=== PATIENT | male | born 1935 | race Caucasian/White ===

== ENCOUNTER 2017-09-21 15:37 | Emergency (ER) | payer MEDICARE, MEDICAID, OTHER ==
[~2017-09-21] VITALS: Ht 1703 cm; Wt 79.5 kg
[~2017-09-21 15:37] MED LIST: ATOR10TA70 PO; CLOP75TA35 PO; DIPH-423 PO; GLIP5TAB13 PO; METF10004 PO; METO25TA6 PO; NITR0.4T48 SL
[2017-09-21 16:26] LABS: ALANINE AMINOTRANSFERASE 7 U/L (12-78); ALBUMIN 2.6 G/DL (3.4-5.0); ALBUMIN/GLOBULIN RATIO 0.6 (1.1-1.5); ALKALINE PHOSPHATASE 83 IU/L (46-116); ANION GAP 13 (8-16); ASPARTATE AMINO TRANSFERASE 27 U/L (10-37); BILIRUBIN,TOTAL 0.4 MG/DL (0.1-1.0); BLOOD UREA NITROGEN 19 MG/DL (7-18); BUN/CREATININE RATIO 12.8 (5.4-32.0); CALCIUM 8.6 MG/DL (8.5-10.1); CHLORIDE 99 MMOL/L (99-107); CREATININE 1.49 MG/DL (0.60-1.10); GLUCOSE 288 MG/DL (70-104); POTASSIUM 4.3 MMOL/L (3.5-5.1); SODIUM 135 MMOL/L (135-145); TOTAL CARBON DIOXIDE 22.9 MMOL/L (24-32); TOTAL PROTEIN 6.9 G/DL (6.4-8.2); eGFR 45 ML/MIN
[2017-09-21 16:34] LABS: ETHANOL < 0.010 GM/DL (0.0-0.010)
[2017-09-21] MEDS ORDERED: HYDR25TA4 PO (16:50)
[2017-09-21 16:56] LABS: BASOPHILS # (AUTO) 0.1 X10'3 (0-0.2); BASOPHILS % (AUTO) 0.8 % (0-1); EOSINOPHILS # (AUTO) 0.5 X10'3 (0-0.9); EOSINOPHILS % (AUTO) 4.1 % (0-6); HEMATOCRIT 28.9 % (42.0-52.0); HEMOGLOBIN 9.2 g/dl (14.0-17.9); LYMPHOCYTES # (AUTO) 0.9 X10'3 (1.1-4.8); LYMPHOCYTES % (AUTO) 7.4 % (21-51); MEAN CORPUSCULAR HEMOGLOBIN 24.6 PG (27.0-31.0); MEAN CORPUSCULAR VOLUME 76.9 FL (78-98); MEAN PLATELET VOLUME 6.4 FL (7.4-10.4); MONOCYTES # (AUTO) 0.5 X10'3 (0-0.9); MONOCYTES % (AUTO) 4.4 % (2-12); NEUTROPHILS # (AUTO) 9.9 X10'3 (1.8-7.7); NEUTROPHILS % (AUTO) 83.3 % (42-75); PLATELET COUNT 669 X10'3 (140-440); RED BLOOD COUNT 3.75 X10'6 (4.70-6.10); RED CELL DISTRIBUTION WIDTH 15.5 % (11.5-14.5); WHITE BLOOD COUNT 11.8 X10'3 (4.5-11.0)
[2017-09-21 17:41] LABS: CLARITY,URINE SLIGHTLY CLOUDY (Clear); COLOR,URINE YELLOW (Yellow); GLUCOSE, URINE 500 mg/dl (Neg); KETONES,URINE 15 mg/dl (Neg); LEUKOCYTE ESTERASE ,URINE NEGATIVE (Neg); NITRITES, URINE NEGATIVE (Neg); OCCULT BLOOD,URINE NEGATIVE (Neg); PROTEIN,URINE 30 mg/dl (Neg)
[2017-09-21 17:42] LABS: UA COLLECTION TYPE CLN CATCH MIDSTREAM
[2017-09-21 17:44] LABS: PLATELET ESTIMATE INCREASED
[2017-09-21 17:45] LABS: BURR CELLS FEW; ELLIPTOCYTES 1+; POIKILOCYTOSIS 1+; SCHISTOCYTES FEW
[2017-09-21 17:46] LABS: MUCUS STRANDS FEW /LPF (Neg); SQUAMOUS EPITHELIAL CELL,UR FEW /LPF (FEW)
[2017-09-21 17:47] LABS: BACTERIA,URINE FEW /HPF (Neg); RBC,URINE 0-2 /HPF (0-2); WBC,URINE 0-4 /HPF (0-4)
[2017-09-21 17:54] LABS: URINE AMPHETAMINE SCREEN NEGATIVE (Neg); URINE BARBITUATE SCREEN NEGATIVE (Neg); URINE BENZODIAZEPINES SCREEN NEGATIVE (Neg); URINE CANNABINOID SCREEN NEGATIVE (Neg); URINE COCAINE SCREEN NEGATIVE (Neg); URINE METHADONE SCREEN NEGATIVE (Neg); URINE OPIATE SCREEN NEGATIVE (Neg); URINE PHENCYCLIDINE SCREEN NEGATIVE (Neg)
[2017-09-21] MEDS ORDERED: nitroGLYCERIN 0.4mg SUBLingual tab SL PRN (19:00)
[2017-09-21] MEDS: metFORMIN 500mg tablet PO SCH (20:00)
[2017-09-21] MEDS: metoprolol tartrate 12.5mg (1/2 tablet) PO SCH (20:00)
[2017-09-21] MEDS: glipizide 5mg tablet PO SCH (20:00)
[2017-09-21] MEDS ORDERED: diphenhydrAMINE 25mg capsule PO ONE (22:10)
[2017-09-22] MEDS: metFORMIN 500mg tablet PO SCH ×2 (08:00→21:42)
[2017-09-22] MEDS: metoprolol tartrate 12.5mg (1/2 tablet) PO SCH ×2 (08:00→21:42)
[2017-09-22] MEDS: HYDROchlorothiazide 25mg tablet PO SCH (08:00)
[2017-09-22] MEDS: glipizide 5mg tablet PO SCH ×2 (08:00→21:43)
[2017-09-23] MEDS ORDERED: LORazepam 1 MG tablet PO ONE (00:40)
[2017-09-23] MEDS: metFORMIN 500mg tablet PO SCH ×2 (08:18→20:54)
[2017-09-23] MEDS: HYDROchlorothiazide 25mg tablet PO SCH (08:18)
[2017-09-23] MEDS: metoprolol tartrate 12.5mg (1/2 tablet) PO SCH ×2 (08:19→20:54)
[2017-09-23] MEDS: glipizide 5mg tablet PO SCH ×2 (08:19→20:54)
[2017-09-23] MEDS: LORazepam 0.5 MG tablet PO PRN (20:55)
[2017-09-23] MEDS: Melatonin 3mg tablet PO SCH (21:00)
[2017-09-24] MEDS: HYDROchlorothiazide 25mg tablet PO SCH (08:31)
[2017-09-24] MEDS: metFORMIN 500mg tablet PO SCH ×2 (08:31→21:05)
[2017-09-24] MEDS: glipizide 5mg tablet PO SCH ×2 (08:31→21:05)
[2017-09-24] MEDS: metoprolol tartrate 12.5mg (1/2 tablet) PO SCH ×2 (08:31→21:05)
[2017-09-24] MEDS: Melatonin 3mg tablet PO SCH (21:00)
[2017-09-24] MEDS: LORazepam 0.5 MG tablet PO PRN (21:05)
[2017-09-25] MEDS: LORazepam 0.5 MG tablet PO PRN (04:02)
[2017-09-25 05:35] VITALS: BP 120/60
[2017-09-25] MEDS: metFORMIN 500mg tablet PO SCH (08:03)
[2017-09-25] MEDS: HYDROchlorothiazide 25mg tablet PO SCH (08:03)
[2017-09-25] MEDS: metoprolol tartrate 12.5mg (1/2 tablet) PO SCH (08:03)
[2017-09-25] MEDS: glipizide 5mg tablet PO SCH (08:03)
[2017-09-25] MEDS ORDERED: MELA3TAB PO (12:15)
== END 2017-09-25 12:10 ==
LOC: ER 15:37
DX: F32.2 Major depressive disorder, single episode, severe without psychotic features (principal); R45.851 Suicidal ideations; E11.9 Type 2 diabetes mellitus without complications; I10 Essential (primary) hypertension; Z79.84 Long term (current) use of oral hypoglycemic drugs
CPT/HCPCS: 36415; 71045; 80053; 80305; 80320; 81001; 84443; 85025; 93005; 99285; Q0163

== ENCOUNTER 2017-09-25 10:26 | Inpatient (IN) | payer MEDICARE, MEDICAID, OTHER ==
[~2017-09-25] VITALS: Ht 172.7 cm; Wt 72.1 kg
[~2017-09-25 10:26] MED LIST changes: -ATOR10TA70 PO; -CLOP75TA35 PO; -DIPH-423 PO; +HYDR25TA4 PO
[2017-09-25] MEDS ORDERED: acetaminophen 325mg tablet PO PRN ×2 (11:45)
[2017-09-25] MEDS ORDERED: mag hydrox/Alum hydrox/simeth 30ml oral suspension PO PRN (11:45)
[2017-09-25] MEDS ORDERED: magnesium hydroxide 30ml (MOM) UD suspension PO PRN (11:45)
[2017-09-25] MEDS ORDERED: MELA3TAB PO (12:15)
[2017-09-25] MEDS ORDERED: nitroGLYCERIN 0.4mg SUBLingual tab SL PRN (12:15)
[2017-09-25 13:10] LABS: CHOL/HDL RATIO 4.7 (0.00-4.99); CHOLESTEROL 156 MG/DL (0-200); HDL CHOLESTEROL 33 MG/DL (35-60); LDL CHOLESTEROL 96 MG/DL (50-100); TRIGLYCERIDES 190 MG/DL (20-135)
[2017-09-25 16:12] VITALS: BP 118/60
[2017-09-25] MEDS: metFORMIN 500mg tablet PO SCH (17:30)
[2017-09-25] MEDS: glipizide 5mg tablet PO SCH (17:30)
[2017-09-25 19:00] VITALS: BP 106/45
[2017-09-25] MEDS: metoprolol tartrate 12.5mg (1/2 tablet) PO SCH (20:00)
[2017-09-25] MEDS ORDERED: Melatonin 3mg tablet PO SCH (21:00)
[2017-09-26] MEDS ORDERED: traZODone 50mg tablet PO PRN (02:20)
[2017-09-26] MEDS: glipizide 5mg tablet PO SCH ×2 (07:30→17:38)
[2017-09-26] MEDS: metFORMIN 500mg tablet PO SCH ×2 (07:30→17:38)
[2017-09-26 08:00] VITALS: BP 115/57
[2017-09-26] MEDS: metoprolol tartrate 12.5mg (1/2 tablet) PO SCH ×2 (09:30→20:52)
[2017-09-26] MEDS: HYDROchlorothiazide 25mg tablet PO SCH (09:31)
[2017-09-26] MEDS: megestrol acetate 20mg tablet PO SCH (15:41)
[2017-09-26 20:00] VITALS: BP 100/54
[2017-09-26] MEDS: zolpidem 5mg tablet PO SCH (20:52)
[2017-09-27] MEDS: metFORMIN 500mg tablet PO SCH ×2 (07:30→17:39)
[2017-09-27] MEDS: glipizide 5mg tablet PO SCH ×2 (07:30→17:39)
[2017-09-27 08:00] VITALS: BP 129/56
[2017-09-27] MEDS: HYDROchlorothiazide 25mg tablet PO SCH (08:00)
[2017-09-27] MEDS: metoprolol tartrate 12.5mg (1/2 tablet) PO SCH ×2 (08:00→20:11)
[2017-09-27] MEDS: megestrol acetate 20mg tablet PO SCH (08:00)
[2017-09-27] MEDS: Protein Shake (high protein) 240ml (8oz) cup PO SCH ×2 (13:00→18:00)
[2017-09-27 20:02] VITALS: BP 131/63
[2017-09-27] MEDS: zolpidem 5mg tablet PO SCH (20:11)
[2017-09-27] MEDS: mirtazapine 15mg tablet PO SCH (20:11)
[2017-09-28] MEDS: glipizide 5mg tablet PO SCH ×2 (07:30→17:30)
[2017-09-28] MEDS: metFORMIN 500mg tablet PO SCH ×2 (07:30→17:30)
[2017-09-28 08:00] VITALS: BP 116/53
[2017-09-28] MEDS: megestrol acetate 20mg tablet PO SCH (08:00)
[2017-09-28] MEDS: HYDROchlorothiazide 25mg tablet PO SCH (08:00)
[2017-09-28] MEDS: Protein Shake (high protein) 240ml (8oz) cup PO SCH ×3 (08:00→18:00)
[2017-09-28] MEDS: metoprolol tartrate 12.5mg (1/2 tablet) PO SCH ×2 (08:00→20:00)
[2017-09-28 20:10] VITALS: BP 114/52
[2017-09-28] MEDS: mirtazapine 15mg tablet PO SCH (21:00)
[2017-09-28] MEDS: zolpidem 5mg tablet PO SCH (21:00)
[2017-09-28] MEDS ORDERED: zolpidem 5mg tablet PO ONE (23:11)
[2017-09-28] MEDS ORDERED: mirtazapine 15mg tablet PO ONE (23:11)
[2017-09-28] MEDS ORDERED: metoprolol tartrate 12.5mg (1/2 tablet) PO ONE (23:12)
[2017-09-29] MEDS ORDERED: METF10004 PO (08:26)
[2017-09-29] MEDS ORDERED: HCTZ25T PO (08:26)
[2017-09-29] MEDS ORDERED: MIRT15TA8 PO (08:26)
[2017-09-29] MEDS ORDERED: NUT.237L32 PO (08:26)
[2017-09-29] MEDS ORDERED: ZOLP5TAB8 PO (08:26)
[2017-09-29] MEDS ORDERED: MEGE20TA PO (08:26)
[2017-09-29] MEDS ORDERED: METO25TA6 PO (08:26)
[2017-09-29 08:42] VITALS: BP 125/67
== END 2017-09-29 11:00 | disposition home or self-care (01) | DRG 881 ==
LOC: ADULT MH 10:26
PROVIDERS: ADMIT Psychiatry & Neurology Psychiatry; ATTEND Psychiatry & Neurology Psychiatry
DX: F32.9 Major depressive disorder, single episode, unspecified (principal); E11.22 Type 2 diabetes mellitus with diabetic chronic kidney disease; R45.851 Suicidal ideations; R63.0 Anorexia; G47.00 Insomnia, unspecified; I25.10 Atherosclerotic heart disease of native coronary artery without angina pectoris; G47.09 Other insomnia; E78.5 Hyperlipidemia, unspecified; N18.9 Chronic kidney disease, unspecified; I12.9 Hypertensive chronic kidney disease with stage 1 through stage 4 chronic kidney disease, or unspecified chronic kidney disease; N40.0 Benign prostatic hyperplasia without lower urinary tract symptoms; Z85.828 Personal history of other malignant neoplasm of skin; Z95.1 Presence of aortocoronary bypass graft; Z68.24 Body mass index [BMI] 24.0-24.9, adult
CPT/HCPCS: 36415; 80061; 82948; 83036; 87070; A6212; A6213

== ENCOUNTER 2018-03-10 19:06 | Inpatient (IN) | payer MEDICARE, OTHER ==
[~2018-03-10] VITALS: Ht 182.9 cm; Wt 68.0 kg
[~2018-03-10 19:06] MED LIST changes: -GLIP5TAB13 PO; +HCTZ25T PO; -HYDR25TA4 PO; +MEGE20TA PO; +METF-438 PO; -METF10004 PO; +MIRT15TA8 PO; +NUT.237L32 PO; +ZOLP5TAB8 PO
[2018-03-10] MEDS ORDERED: TRAZ-219 PO (20:31)
[2018-03-10] MEDS ORDERED: normal saline 1000ML IV soln IVB ONE (20:55)
[2018-03-10] MEDS ORDERED: temazepam 15mg capsule PO PRN (21:00)
[2018-03-10 21:01] LABS: BASOPHILS # (AUTO) 0.1 X10'3 (0-0.2); BASOPHILS % (AUTO) 0.4 % (0-1); EOSINOPHILS # (AUTO) 0.3 X10'3 (0-0.9); EOSINOPHILS % (AUTO) 1.9 % (0-6); HEMATOCRIT 28.8 % (42.0-52.0); HEMOGLOBIN 9.2 g/dl (14.0-17.9); LYMPHOCYTES # (AUTO) 0.6 X10'3 (1.1-4.8); LYMPHOCYTES % (AUTO) 4.3 % (21-51); MEAN CORPUSCULAR HEMOGLOBIN 26.2 PG (27.0-31.0); MEAN PLATELET VOLUME 7.4 FL (7.4-10.4); MONOCYTES # (AUTO) 0.6 X10'3 (0-0.9); MONOCYTES % (AUTO) 4.4 % (2-12); NEUTROPHILS # (AUTO) 12.9 X10'3 (1.8-7.7); PLATELET COUNT 479 X10'3 (140-440); RED BLOOD COUNT 3.51 X10'6 (4.70-6.10); RED CELL DISTRIBUTION WIDTH 15.8 % (11.5-14.5); WHITE BLOOD COUNT 14.5 X10'3 (4.5-11.0)
[2018-03-10 21:10] LABS: ALANINE AMINOTRANSFERASE 9 U/L (12-78); ALBUMIN 2.2 G/DL (3.4-5.0); ALBUMIN/GLOBULIN RATIO 0.6 (1.1-1.5); ALKALINE PHOSPHATASE 85 IU/L (46-116); ANION GAP 6 (8-16); ASPARTATE AMINO TRANSFERASE 12 U/L (10-37); BILIRUBIN,TOTAL 0.4 MG/DL (0.1-1.0); BLOOD UREA NITROGEN 21 MG/DL (7-18); BUN/CREATININE RATIO 14.8 (5.4-32.0); CALCIUM 8.6 MG/DL (8.5-10.1); CHLORIDE 103 MMOL/L (99-107); CREATININE 1.42 MG/DL (0.60-1.10); GLUCOSE 204 MG/DL (70-104); POTASSIUM 4.6 MMOL/L (3.5-5.1); SODIUM 139 MMOL/L (135-145); TOTAL CARBON DIOXIDE 29.6 MMOL/L (24-32); eGFR 48 ML/MIN
[2018-03-10 21:17] LABS: INR 1.1 INR; PARTIAL THROMBOPLASTIN TIME 27 SECONDS (22-32); PROTHROMBIN TIME 11.2 SECONDS (9.0-12.0)
[2018-03-10 21:19] LABS: MAGNESIUM 1.8 MG/DL (1.5-2.4); PHOSPHORUS 3.1 MG/DL (2.3-4.5); TROPONIN I < 0.04 NG/ML (0.0-0.05)
[2018-03-10] MEDS ORDERED: levoFLOXACIN-Levaquin 750MG/D5 150 ML IV STA (21:44)
[2018-03-10] MEDS ORDERED: furosemide 10 MG/1 ML 10ml inj IV ONE (21:50)
[2018-03-10] MEDS ORDERED: diltiazem-NS 100mg/100ml 100 ML IV SCH (22:05)
[2018-03-10 22:10] LABS: CLARITY,URINE CLEAR (Clear); COLOR,URINE YELLOW (Yellow); GLUCOSE, URINE NEGATIVE (Neg); KETONES,URINE 15 mg/dl (Neg); LEUKOCYTE ESTERASE ,URINE NEGATIVE (Neg); NITRITES, URINE NEGATIVE (Neg); OCCULT BLOOD,URINE MODERATE (Neg); PH,URINE 8.5 (4.8-8.0); PROTEIN,URINE TRACE mg/dl (Neg)
[2018-03-10 22:15] LABS: UA COLLECTION TYPE STRAIGHT CATH
[2018-03-10 22:22] LABS: MUCUS STRANDS FEW /LPF (Neg)
[2018-03-10 22:23] LABS: BACTERIA,URINE NONE SEEN /HPF (Neg); RBC,URINE 20-50 /HPF (0-2); SQUAMOUS EPITHELIAL CELL,UR NONE SEEN /LPF (FEW); WBC,URINE NONE SEEN /HPF (0-4)
[2018-03-10] MEDS ORDERED: HYDROcodone/acetaminophen 5mg/325mg tablet PO PRN (22:35)
[2018-03-10] MEDS ORDERED: acetaminophen 325mg tablet PO PRN ×2 (22:35)
[2018-03-10] MEDS ORDERED: MESSAGE TO PHARMACY PO ONE (22:35)
[2018-03-10] MEDS ORDERED: dextrose 50%-water 50ml dispensing syringe IV PRN ×2 (22:35)
[2018-03-10] MEDS ORDERED: magnesium hydroxide 30ml (MOM) UD suspension PO PRN (22:35)
[2018-03-10] MEDS ORDERED: mag hydrox/Alum hydrox/simeth 30ml oral suspension PO PRN (22:35)
[2018-03-10] MEDS ORDERED: dextrose ORAL solution 15 GM/59 ML bottle PO PRN ×2 (22:35)
[2018-03-10] MEDS ORDERED: insulin Lispro (HumaLOG) vial - multi-dose SQ SCH (22:35)
[2018-03-10] MEDS ORDERED: glucagon, human recombinant 1mg kit SUBCUT PRN (22:35)
[2018-03-10] MEDS ORDERED: nitroGLYCERIN 0.4mg SUBLingual tab SL PRN (22:40)
[2018-03-10 23:00] LABS: HEMOGLOBIN A1C 8.7 % (4.5-6.2)
[2018-03-11] VITALS (8 sets, daily range): BP systolic 89–116; BP diastolic 48–64
[2018-03-11] MEDS: metoprolol tartrate 12.5mg (1/2 tablet) PO SCH ×2 (08:00→21:19)
[2018-03-11] MEDS: enoxaparin 40mg/0.4ml syringe SUBCUT SCH (08:00)
[2018-03-11] MEDS: megestrol acetate 20mg tablet PO SCH (08:00)
[2018-03-11] MEDS ORDERED: furosemide 20 MG/2 ML vial IV ONE (11:50)
[2018-03-11] MEDS: insulin glargine (Lantus) pen - multi-dose SQ SCH (21:00)
[2018-03-11] MEDS: diatr meglu/diatrizoate 30ml oral sol.-(3 dose) bottle PO SCH (21:15)
[2018-03-11] MEDS: traZODone 50mg tablet PO SCH (21:18)
[2018-03-11] MEDS: mirtazapine 15mg tablet PO SCH (21:18)
[2018-03-12 02:00] VITALS: BP 112/62
[2018-03-12 06:52] LABS: BASOPHILS # (AUTO) 0.1 X10'3 (0-0.2); BASOPHILS % (AUTO) 0.7 % (0-1); EOSINOPHILS # (AUTO) 0.4 X10'3 (0-0.9); EOSINOPHILS % (AUTO) 4.4 % (0-6); HEMATOCRIT 31.1 % (42.0-52.0); HEMOGLOBIN 9.8 g/dl (14.0-17.9); LYMPHOCYTES # (AUTO) 1.7 X10'3 (1.1-4.8); LYMPHOCYTES % (AUTO) 17.4 % (21-51); MEAN CORPUSCULAR HEMOGLOBIN 26.1 PG (27.0-31.0); MEAN CORPUSCULAR HGB CONC 31.4 % (33.0-36.5); MEAN CORPUSCULAR VOLUME 82.9 FL (78-98); MEAN PLATELET VOLUME 7.1 FL (7.4-10.4); MONOCYTES # (AUTO) 0.7 X10'3 (0-0.9); NEUTROPHILS # (AUTO) 6.9 X10'3 (1.8-7.7); NEUTROPHILS % (AUTO) 70.5 % (42-75); PLATELET COUNT 519 X10'3 (140-440); RED BLOOD COUNT 3.75 X10'6 (4.70-6.10); RED CELL DISTRIBUTION WIDTH 16.2 % (11.5-14.5); WHITE BLOOD COUNT 9.8 X10'3 (4.5-11.0)
[2018-03-12 06:53] LABS: ALBUMIN 2.1 G/DL (3.4-5.0); ANION GAP 8 (8-16); BLOOD UREA NITROGEN 19 MG/DL (7-18); BUN/CREATININE RATIO 12.6 (5.4-32.0); CALCIUM 8.7 MG/DL (8.5-10.1); CHLORIDE 104 MMOL/L (99-107); CREATININE 1.51 MG/DL (0.60-1.10); GLUCOSE 112 MG/DL (70-104); POTASSIUM 3.9 MMOL/L (3.5-5.1); SODIUM 141 MMOL/L (135-145); TOTAL CARBON DIOXIDE 28.9 MMOL/L (24-32); eGFR 44 ML/MIN
[2018-03-12] MEDS: diatr meglu/diatrizoate 30ml oral sol.-(3 dose) bottle PO SCH ×2 (07:30→10:02)
[2018-03-12 07:45] VITALS: BP 114/64
[2018-03-12] MEDS: metoprolol tartrate 12.5mg (1/2 tablet) PO SCH ×2 (08:00→20:00)
[2018-03-12] MEDS: enoxaparin 40mg/0.4ml syringe SUBCUT SCH (08:00)
[2018-03-12] MEDS: lisinopril 2.5mg tablet PO SCH (08:00)
[2018-03-12] MEDS: megestrol acetate 20mg tablet PO SCH (08:00)
[2018-03-12] MEDS: furosemide 20 MG/2 ML vial IV SCH (08:04)
[2018-03-12 09:56] LABS: C DIFF ANTIGEN NEGATIVE (NEGATIVE); C DIFF SPECIMEN=DIARRHEA? ACCEPTABLE; C DIFFICILE TOXINS A&B NEGATIVE (Neg)
[2018-03-12] MEDS ORDERED: iohexol 300mg/ml 100ml inj. ONE (11:16)
[2018-03-12 14:28] VITALS: BP 116/53
[2018-03-12 15:00] VITALS: BP 133/71
[2018-03-12] MEDS ORDERED: PEG 3350/Na sulf,bicarb,Cl/KCl oral sol 4 liter bottle PO ONE ×2 (15:45→16:00)
[2018-03-12 18:00] VITALS: BP 111/62
[2018-03-12] MEDS: mirtazapine 15mg tablet PO SCH (21:00)
[2018-03-12] MEDS: traZODone 50mg tablet PO SCH (21:00)
[2018-03-12] MEDS: insulin glargine (Lantus) pen - multi-dose SQ SCH (21:00)
[2018-03-12 22:00] VITALS: BP 112/44
[2018-03-12] MEDS ORDERED: amiodarone 200mg tablet PO STA (22:13)
[2018-03-13 02:00] VITALS: BP 116/64
[2018-03-13 06:00] VITALS: BP 117/65
[2018-03-13 06:40] LABS: ALBUMIN 1.8 G/DL (3.4-5.0); ANION GAP 6 (8-16); BLOOD UREA NITROGEN 17 MG/DL (7-18); BUN/CREATININE RATIO 12.4 (5.4-32.0); CALCIUM 8.2 MG/DL (8.5-10.1); CHLORIDE 105 MMOL/L (99-107); CREATININE 1.37 MG/DL (0.60-1.10); GLUCOSE 125 MG/DL (70-104); SODIUM 140 MMOL/L (135-145); TOTAL CARBON DIOXIDE 29.4 MMOL/L (24-32); eGFR 50 ML/MIN
[2018-03-13 06:55] LABS: BASOPHILS # (AUTO) 0.1 X10'3 (0-0.2); BASOPHILS % (AUTO) 0.7 % (0-1); EOSINOPHILS # (AUTO) 0.3 X10'3 (0-0.9); EOSINOPHILS % (AUTO) 3.3 % (0-6); HEMATOCRIT 28.3 % (42.0-52.0); LYMPHOCYTES % (AUTO) 10.4 % (21-51); MEAN CORPUSCULAR HEMOGLOBIN 26.3 PG (27.0-31.0); MEAN CORPUSCULAR HGB CONC 31.8 % (33.0-36.5); MEAN CORPUSCULAR VOLUME 82.7 FL (78-98); MEAN PLATELET VOLUME 6.8 FL (7.4-10.4); MONOCYTES # (AUTO) 0.6 X10'3 (0-0.9); MONOCYTES % (AUTO) 6.7 % (2-12); NEUTROPHILS # (AUTO) 7.6 X10'3 (1.8-7.7); NEUTROPHILS % (AUTO) 78.9 % (42-75); PLATELET COUNT 499 X10'3 (140-440); RED BLOOD COUNT 3.43 X10'6 (4.70-6.10); WHITE BLOOD COUNT 9.6 X10'3 (4.5-11.0)
[2018-03-13] MEDS: metoprolol tartrate 12.5mg (1/2 tablet) PO SCH ×2 (08:00→19:41)
[2018-03-13] MEDS: lisinopril 2.5mg tablet PO SCH (08:00)
[2018-03-13] MEDS: megestrol acetate 20mg tablet PO SCH (08:00)
[2018-03-13] MEDS: furosemide 20 MG/2 ML vial IV SCH (08:58)
[2018-03-13 10:08] LABS: MAGNESIUM 1.7 MG/DL (1.5-2.4)
[2018-03-13 11:00] VITALS: BP 109/55
[2018-03-13 15:00] VITALS: BP 114/59
[2018-03-13 18:00] VITALS: BP 111/50
[2018-03-13] MEDS: traZODone 50mg tablet PO SCH (20:25)
[2018-03-13] MEDS: mirtazapine 15mg tablet PO SCH (20:25)
[2018-03-13] MEDS: insulin glargine (Lantus) pen - multi-dose SQ SCH (21:00)
[2018-03-13 22:00] VITALS: BP 116/58
[2018-03-14 06:00] VITALS: BP 134/54
[2018-03-14] MEDS: megestrol acetate 20mg tablet PO SCH (08:00)
[2018-03-14] MEDS: lisinopril 2.5mg tablet PO SCH (08:00)
[2018-03-14] MEDS: furosemide 20 MG/2 ML vial IV SCH (08:00)
[2018-03-14] MEDS: metoprolol tartrate 12.5mg (1/2 tablet) PO SCH ×2 (08:00→19:45)
[2018-03-14 11:00] VITALS: BP 136/64
[2018-03-14] MEDS: Protein Smoothie (high protein) 240ml (8oz) cup PO SCH (17:00)
[2018-03-14 19:00] VITALS: BP 116/60
[2018-03-14] MEDS: mirtazapine 15mg tablet PO SCH (20:04)
[2018-03-14] MEDS: traZODone 50mg tablet PO SCH (20:04)
[2018-03-14] MEDS: insulin glargine (Lantus) pen - multi-dose SQ SCH (20:04)
[2018-03-15] VITALS: BP 116/54
[2018-03-15 05:07] LABS: BASOPHILS # (AUTO) 0.1 X10'3 (0-0.2); BASOPHILS % (AUTO) 0.6 % (0-1); EOSINOPHILS # (AUTO) 0.4 X10'3 (0-0.9); EOSINOPHILS % (AUTO) 3.3 % (0-6); HEMATOCRIT 28.2 % (42.0-52.0); LYMPHOCYTES # (AUTO) 0.9 X10'3 (1.1-4.8); LYMPHOCYTES % (AUTO) 8.4 % (21-51); MEAN CORPUSCULAR HEMOGLOBIN 26.2 PG (27.0-31.0); MEAN CORPUSCULAR HGB CONC 31.9 % (33.0-36.5); MEAN CORPUSCULAR VOLUME 82.1 FL (78-98); MEAN PLATELET VOLUME 6.8 FL (7.4-10.4); MONOCYTES # (AUTO) 0.6 X10'3 (0-0.9); MONOCYTES % (AUTO) 5.6 % (2-12); NEUTROPHILS # (AUTO) 8.7 X10'3 (1.8-7.7); NEUTROPHILS % (AUTO) 82.1 % (42-75); PLATELET COUNT 483 X10'3 (140-440); RED BLOOD COUNT 3.43 X10'6 (4.70-6.10); RED CELL DISTRIBUTION WIDTH 16.2 % (11.5-14.5); WHITE BLOOD COUNT 10.6 X10'3 (4.5-11.0)
[2018-03-15 05:30] LABS: ALBUMIN 1.9 G/DL (3.4-5.0); ANION GAP 12 (8-16); BLOOD UREA NITROGEN 18 MG/DL (7-18); BUN/CREATININE RATIO 11.5 (5.4-32.0); CALCIUM 8.4 MG/DL (8.5-10.1); CHLORIDE 104 MMOL/L (99-107); CREATININE 1.56 MG/DL (0.60-1.10); GLUCOSE 79 MG/DL (70-104); POTASSIUM 4.1 MMOL/L (3.5-5.1); SODIUM 141 MMOL/L (135-145); TOTAL CARBON DIOXIDE 24.8 MMOL/L (24-32); eGFR 43 ML/MIN
[2018-03-15 07:30] VITALS: BP 114/52
[2018-03-15] MEDS: megestrol acetate 20mg tablet PO SCH (08:00)
[2018-03-15] MEDS: metoprolol tartrate 12.5mg (1/2 tablet) PO SCH ×2 (08:00→20:00)
[2018-03-15] MEDS: lisinopril 2.5mg tablet PO SCH (08:00)
[2018-03-15] MEDS: furosemide 20 MG/2 ML vial IV SCH (08:00)
[2018-03-15 11:00] VITALS: BP 108/51
[2018-03-15] MEDS: Protein Smoothie (high protein) 240ml (8oz) cup PO SCH (17:00)
[2018-03-15 18:00] VITALS: BP 125/62
[2018-03-15] MEDS: mirtazapine 15mg tablet PO SCH (20:09)
[2018-03-15] MEDS: traZODone 50mg tablet PO SCH (20:09)
[2018-03-15] MEDS: insulin glargine (Lantus) pen - multi-dose SQ SCH (20:10)
[2018-03-16] VITALS: BP 124/58
[2018-03-16] MEDS: lisinopril 2.5mg tablet PO SCH (08:00)
[2018-03-16] MEDS: megestrol acetate 20mg tablet PO SCH (08:00)
[2018-03-16] MEDS: furosemide 20 MG/2 ML vial IV SCH (08:00)
[2018-03-16] MEDS: metoprolol tartrate 12.5mg (1/2 tablet) PO SCH ×2 (08:00→20:00)
[2018-03-16 08:08] VITALS: BP 125/63
[2018-03-16] MEDS: azithromycin/NS 500mg/250ml 250 ML IV SCH (10:08)
[2018-03-16 12:00] VITALS: BP 104/57
[2018-03-16 18:00] VITALS: BP 128/67
[2018-03-16] MEDS: traZODone 50mg tablet PO SCH (20:54)
[2018-03-16] MEDS: insulin glargine (Lantus) pen - multi-dose SQ SCH (20:55)
[2018-03-16] MEDS: mirtazapine 15mg tablet PO SCH (20:55)
[2018-03-17] VITALS: BP 128/65
[2018-03-17 08:00] VITALS: BP 118/73
[2018-03-17] MEDS: metoprolol tartrate 12.5mg (1/2 tablet) PO SCH ×2 (08:00→20:00)
[2018-03-17] MEDS: lisinopril 2.5mg tablet PO SCH (08:00)
[2018-03-17] MEDS: furosemide 20 MG/2 ML vial IV SCH (08:00)
[2018-03-17] MEDS: megestrol acetate 20mg tablet PO SCH (08:00)
[2018-03-17] MEDS: azithromycin/NS 500mg/250ml 250 ML IV SCH (08:19)
[2018-03-17 12:00] VITALS: BP 128/68
[2018-03-17] MEDS: morphine 2 MG/ML inj. syringe IV PRN ×2 (17:05→21:35)
[2018-03-17 18:00] VITALS: BP 119/60
[2018-03-17] MEDS: insulin glargine (Lantus) pen - multi-dose SQ SCH (20:47)
[2018-03-17] MEDS: mirtazapine 15mg tablet PO SCH (20:47)
[2018-03-17] MEDS: traZODone 50mg tablet PO SCH (20:47)
[2018-03-18] VITALS: BP 119/66
[2018-03-18 07:13] VITALS: BP 115/62
[2018-03-18] MEDS: metoprolol tartrate 12.5mg (1/2 tablet) PO SCH ×2 (08:00→20:00)
[2018-03-18] MEDS: furosemide 20 MG/2 ML vial IV SCH (08:00)
[2018-03-18] MEDS: lisinopril 2.5mg tablet PO SCH (08:00)
[2018-03-18] MEDS: azithromycin/NS 500mg/250ml 250 ML IV SCH (08:00)
[2018-03-18] MEDS: megestrol acetate 20mg tablet PO SCH (08:00)
[2018-03-18 11:00] VITALS: BP 125/63
[2018-03-18] MEDS: Protein Smoothie (high protein) 240ml (8oz) cup PO SCH (17:00)
[2018-03-18] MEDS: morphine 2 MG/ML inj. syringe IV PRN (17:25)
[2018-03-18 20:00] VITALS: BP 125/70
[2018-03-18] MEDS: mirtazapine 15mg tablet PO SCH (21:00)
[2018-03-18] MEDS: insulin glargine (Lantus) pen - multi-dose SQ SCH (21:00)
[2018-03-18] MEDS: traZODone 50mg tablet PO SCH (21:00)
[2018-03-19] VITALS: BP 132/67
[2018-03-19] MEDS: morphine 2 MG/ML inj. syringe IV PRN (01:18)
[2018-03-19 07:30] VITALS: BP 126/68
[2018-03-19] MEDS: metoprolol tartrate 12.5mg (1/2 tablet) PO SCH ×2 (08:00→20:00)
[2018-03-19] MEDS: azithromycin/NS 500mg/250ml 250 ML IV SCH (08:00)
[2018-03-19] MEDS: megestrol acetate 20mg tablet PO SCH (08:00)
[2018-03-19] MEDS: lisinopril 2.5mg tablet PO SCH (08:00)
[2018-03-19] MEDS: furosemide 20 MG/2 ML vial IV SCH (08:00)
[2018-03-19 11:00] VITALS: BP 128/72
[2018-03-19] MEDS: Protein Smoothie (high protein) 240ml (8oz) cup PO SCH (17:00)
[2018-03-19 20:00] VITALS: BP 141/77
[2018-03-19] MEDS: insulin glargine (Lantus) pen - multi-dose SQ SCH (21:00)
[2018-03-19] MEDS: mirtazapine 15mg tablet PO SCH (21:00)
[2018-03-19] MEDS: traZODone 50mg tablet PO SCH (21:00)
[2018-03-20] VITALS: BP 138/63
[2018-03-20] MEDS: morphine 2 MG/ML inj. syringe IV PRN ×3 (02:16→15:32)
[2018-03-20 07:00] VITALS: BP 109/63
[2018-03-20] MEDS: azithromycin/NS 500mg/250ml 250 ML IV SCH (08:00)
[2018-03-20] MEDS: metoprolol tartrate 12.5mg (1/2 tablet) PO SCH ×2 (08:00→20:00)
[2018-03-20] MEDS: lisinopril 2.5mg tablet PO SCH (08:00)
[2018-03-20] MEDS: megestrol acetate 20mg tablet PO SCH (08:00)
[2018-03-20] MEDS: furosemide 20 MG/2 ML vial IV SCH (08:00)
[2018-03-20 11:00] VITALS: BP 94/49
[2018-03-20] MEDS: Protein Smoothie (high protein) 240ml (8oz) cup PO SCH (17:00)
[2018-03-20 20:00] VITALS: BP 93/40
[2018-03-20] MEDS: mirtazapine 15mg tablet PO SCH (21:00)
[2018-03-20] MEDS: insulin glargine (Lantus) pen - multi-dose SQ SCH (21:00)
[2018-03-20] MEDS: traZODone 50mg tablet PO SCH (21:00)
[2018-03-20] MEDS: ondansetron/PF 4mg/2ml inj IV PRN (23:10)
[2018-03-21] VITALS: BP 103/42
[2018-03-21 08:00] VITALS: BP 95/34
[2018-03-21] MEDS: metoprolol tartrate 12.5mg (1/2 tablet) PO SCH ×2 (08:00→20:00)
[2018-03-21] MEDS: lisinopril 2.5mg tablet PO SCH (08:00)
[2018-03-21] MEDS: furosemide 20 MG/2 ML vial IV SCH (08:00)
[2018-03-21] MEDS: megestrol acetate 20mg tablet PO SCH (08:00)
[2018-03-21] MEDS: azithromycin/NS 500mg/250ml 250 ML IV SCH (08:00)
[2018-03-21] MEDS: ondansetron/PF 4mg/2ml inj IV PRN ×2 (08:07→19:02)
[2018-03-21] MEDS: Protein Smoothie (high protein) 240ml (8oz) cup PO SCH (17:00)
[2018-03-21 20:00] VITALS: BP 113/53
[2018-03-21] MEDS: insulin glargine (Lantus) pen - multi-dose SQ SCH (21:00)
[2018-03-21] MEDS: traZODone 50mg tablet PO SCH (21:00)
[2018-03-21] MEDS: mirtazapine 15mg tablet PO SCH (21:00)
[2018-03-22] VITALS: BP 101/42
[2018-03-22 07:00] VITALS: BP 112/60
[2018-03-22] MEDS: metoprolol tartrate 12.5mg (1/2 tablet) PO SCH ×2 (08:00→20:00)
[2018-03-22] MEDS: megestrol acetate 20mg tablet PO SCH (08:00)
[2018-03-22] MEDS: furosemide 20 MG/2 ML vial IV SCH (08:00)
[2018-03-22] MEDS: lisinopril 2.5mg tablet PO SCH (08:00)
[2018-03-22] MEDS: ondansetron/PF 4mg/2ml inj IV PRN (08:06)
[2018-03-22 11:00] VITALS: BP 95/52
[2018-03-22] MEDS: Protein Smoothie (high protein) 240ml (8oz) cup PO SCH (17:00)
[2018-03-22 20:00] VITALS: BP 112/57
[2018-03-22] MEDS: insulin glargine (Lantus) pen - multi-dose SQ SCH (21:00)
[2018-03-22] MEDS: mirtazapine 15mg tablet PO SCH (21:00)
[2018-03-22] MEDS: traZODone 50mg tablet PO SCH (21:00)
[2018-03-23] VITALS: BP 125/67
[2018-03-23] MEDS: metoprolol tartrate 12.5mg (1/2 tablet) PO SCH ×2 (08:00→20:00)
[2018-03-23] MEDS: furosemide 20 MG/2 ML vial IV SCH (08:00)
[2018-03-23] MEDS: lisinopril 2.5mg tablet PO SCH (08:00)
[2018-03-23] MEDS: megestrol acetate 20mg tablet PO SCH (08:00)
[2018-03-23 08:30] VITALS: BP 89/43
[2018-03-23] MEDS: Protein Smoothie (high protein) 240ml (8oz) cup PO SCH (17:00)
[2018-03-23 20:00] VITALS: BP 113/59
[2018-03-23] MEDS: mirtazapine 15mg tablet PO SCH (20:00)
[2018-03-23] MEDS: insulin glargine (Lantus) pen - multi-dose SQ SCH (20:00)
[2018-03-23] MEDS: traZODone 50mg tablet PO SCH (20:00)
[2018-03-24 07:30] VITALS: BP 115/60
[2018-03-24] MEDS: furosemide 20 MG/2 ML vial IV SCH (08:00)
[2018-03-24] MEDS: lisinopril 2.5mg tablet PO SCH (08:00)
[2018-03-24] MEDS: megestrol acetate 20mg tablet PO SCH (08:00)
[2018-03-24] MEDS: metoprolol tartrate 12.5mg (1/2 tablet) PO SCH ×2 (08:00→20:00)
[2018-03-24 14:12] LABS: BASOPHILS % (AUTO) 0 % (0-1); EOSINOPHILS # (AUTO) 0.1 X10'3 (0-0.9); EOSINOPHILS % (AUTO) 0.6 % (0-6); HEMATOCRIT 33.6 % (42.0-52.0); HEMOGLOBIN 10.8 g/dl (14.0-17.9); LYMPHOCYTES # (AUTO) 0.4 X10'3 (1.1-4.8); LYMPHOCYTES % (AUTO) 3.1 % (21-51); MEAN CORPUSCULAR HEMOGLOBIN 26.5 PG (27.0-31.0); MEAN CORPUSCULAR VOLUME 82.8 FL (78-98); MEAN PLATELET VOLUME 7.1 FL (7.4-10.4); MONOCYTES # (AUTO) 0.6 X10'3 (0-0.9); MONOCYTES % (AUTO) 4.8 % (2-12); NEUTROPHILS % (AUTO) 91.5 % (42-75); PLATELET COUNT 440 X10'3 (140-440); RED BLOOD COUNT 4.06 X10'6 (4.70-6.10); RED CELL DISTRIBUTION WIDTH 18.3 % (11.5-14.5); WHITE BLOOD COUNT 12.1 X10'3 (4.5-11.0)
[2018-03-24 14:22] LABS: ALBUMIN 2.3 G/DL (3.4-5.0); ANION GAP 16 (8-16); BLOOD UREA NITROGEN 60 MG/DL (7-18); BUN/CREATININE RATIO 28.2 (5.4-32.0); CALCIUM 9.4 MG/DL (8.5-10.1); CHLORIDE 114 MMOL/L (99-107); CREATININE 2.13 MG/DL (0.60-1.10); GLUCOSE 215 MG/DL (70-104); POTASSIUM 3.8 MMOL/L (3.5-5.1); SODIUM 152 MMOL/L (135-145); TOTAL CARBON DIOXIDE 21.8 MMOL/L (24-32); eGFR 30 ML/MIN
[2018-03-24] MEDS: normal saline 1000ml 1,000 ML IV SCH (14:38)
[2018-03-24 18:00] VITALS: BP 105/48
[2018-03-24] MEDS: insulin glargine (Lantus) pen - multi-dose SQ SCH (20:39)
[2018-03-24] MEDS: traZODone 50mg tablet PO SCH (20:49)
[2018-03-24] MEDS: morphine 2 MG/ML inj. syringe IV PRN (22:15)
[2018-03-25] MEDS: morphine 2 MG/ML inj. syringe IV PRN ×6 (02:39→22:23)
[2018-03-25] MEDS: metoprolol tartrate 12.5mg (1/2 tablet) PO SCH ×2 (08:00→19:17)
[2018-03-25] MEDS: lisinopril 2.5mg tablet PO SCH (08:00)
[2018-03-25 08:29] VITALS: BP 144/45
[2018-03-25] MEDS: normal saline 1000ml 1,000 ML IV SCH ×2 (08:55→15:27)
[2018-03-25] MEDS: fluconazole-Diflucan 100MG/NS 50 ML IV SCH (09:38)
[2018-03-25] MEDS ORDERED: ondansetron/PF 4mg/2ml inj IV PRN (11:45)
[2018-03-25 18:00] VITALS: BP 64/27
[2018-03-25] MEDS: insulin glargine (Lantus) pen - multi-dose SQ SCH (21:00)
[2018-03-25] MEDS: traZODone 50mg tablet PO SCH (21:00)
[2018-03-25 22:01] VITALS: BP 105/44
[2018-03-26 06:58] VITALS: BP 94/32
[2018-03-26] MEDS: fluconazole-Diflucan 100MG/NS 50 ML IV SCH (07:13)
[2018-03-26 07:22] VITALS: BP_SYST 94
[2018-03-26] MEDS: lisinopril 2.5mg tablet PO SCH (07:22)
[2018-03-26] MEDS: metoprolol tartrate 12.5mg (1/2 tablet) PO SCH (07:22)
[2018-03-26] MEDS: morphine 2 MG/ML inj. syringe IV PRN (07:40)
[2018-03-26] MEDS: normal saline 1000ml 1,000 ML IV SCH (10:23)
== END 2018-03-26 13:16 | disposition expired | DRG 291 ==
LOC: ER 19:07 → ED HOLD 22:34 → PCU 3S 23:55 → SUR 3N 03-14 10:40
PROVIDERS: ADMIT Hospitalist; ATTEND Internal Medicine
PROC: BW251ZZ Computerized Tomography (CT Scan) of Chest, Abdomen and Pelvis using Low Osmolar Contrast (ICD-10-PCS; principal; 2018-03-12)
DX: I13.0 Hypertensive heart and chronic kidney disease with heart failure and stage 1 through stage 4 chronic kidney disease, or unspecified chronic kidney disease (principal); I50.23 Acute on chronic systolic (congestive) heart failure; E43 Unspecified severe protein-calorie malnutrition; J18.1 Lobar pneumonia, unspecified organism; N18.4 Chronic kidney disease, stage 4 (severe); I48.91 Unspecified atrial fibrillation; F32.9 Major depressive disorder, single episode, unspecified; D63.8 Anemia in other chronic diseases classified elsewhere; E11.22 Type 2 diabetes mellitus with diabetic chronic kidney disease; K52.9 Noninfective gastroenteritis and colitis, unspecified; R55 Syncope and collapse; W18.39XA Other fall on same level, initial encounter; J02.9 Acute pharyngitis, unspecified; Z60.2 Problems related to living alone; K63.89 Other specified diseases of intestine; E11.65 Type 2 diabetes mellitus with hyperglycemia; I25.10 Atherosclerotic heart disease of native coronary artery without angina pectoris; Z51.5 Encounter for palliative care; Z66 Do not resuscitate; Z68.20 Body mass index [BMI] 20.0-20.9, adult; Z79.84 Long term (current) use of oral hypoglycemic drugs; Z79.899 Other long term (current) drug therapy; Z85.828 Personal history of other malignant neoplasm of skin; Y93.89 Activity, other specified; Y92.090 Kitchen in other non-institutional residence as the place of occurrence of the external cause; Y99.8 Other external cause status
CPT/HCPCS: 36415; 70450; 71045; 71260; 74177; 80048; 80053; 81001; 82140; 82948; 83036; 83605; 83735; 83880; 84100; 84443; 84484; 85025; 85610; 85730; 87040; 87070; 87324; 87449; 93005; 93306; 96361; 96365; 96375; 97110; 97116; 97162; 97530; 99285; G0378; J0456; J1450; J1650; J1815; J1940; J1956; J2270; J2405; J3490; J7030; Q9963; Q9967